=== PATIENT | male | born 1950 | race Caucasian/White ===

== ENCOUNTER 2025-07-13 14:39 | Outpatient (CLI) | payer BC, SELFPAY ==
--- NOTE | ~2025-07-13 | XR_ITS ---
EXAMINATION: XR knee LT min 4V, 07/13/2025 14:47 CDT HISTORY: M25.562 - Pain in left knee COMPARISON: No comparisons available. Findings: No acute fracture or malalignment. Severe tricompartmental degenerative changes Soft tissues unremarkable. Impression: No acute fracture or malalignment. Reviewed, dictated and finalized at location P. Impression: No acute fracture or malalignment.
--- NOTE | ~2025-07-13 | XR_ITS ---
EXAMINATION: XR knee RT min 4V, 07/13/2025 14:47 CDT HISTORY: M25.561 - Pain in right knee COMPARISON: No comparisons available. Findings: No acute fracture or malalignment. Severe tricompartmental degenerative changes Soft tissues unremarkable. Impression: No acute fracture or malalignment. Reviewed, dictated and finalized at location P. Impression: No acute fracture or malalignment.
== END 2025-07-13 14:40 | disposition home or self-care (01) ==
LOC: MICIMG 14:43
PROVIDERS: PCP Internal Medicine; Visit Provider Orthopaedic Surgery
DX: M25.562 Pain in left knee (principal); M25.561 Pain in right knee
CPT/HCPCS: 73564